=== PATIENT | female | born 1980 | race Caucasian/White ===

== ENCOUNTER 2017-11-08 22:06 | Emergency (ER) | payer OTHER, SELFPAY ==
[2017-11-08 22:07] VITALS: BP 139/86; PULSE 70; RESP 16; TEMP 36.6; O2SAT 98; BMI 24.9
--- NOTE | 2017-11-08 22:35 | RAD_ITS ---
STUDY: X-RAY - CERVICAL SPINE REASON FOR EXAM: Female, 37 years old. Neck pain TECHNIQUE: 4 view(s) of the cervical spine were obtained. COMPARISON: None FINDINGS: Normal anterior atlantoaxial articulation. Normal odontoid process. There is straightening of the cervical lordosis. Normal vertebral bodies and endplates. Normal disc space heights. The soft tissue structures are unremarkable. The head is slightly tilted to the right which may be due to muscle spasm. RAD/Cerv Spine 2 or 3 Views IMPRESSION: No acute bony pathology of the visualized cervical spine. Electronically Signed: Jose Breen DO at 22:53 EST Tel [phone], Service support ,
--- NOTE | 2017-11-08 22:40 | ED.VISSUMM ---
- ER Visit Summary Date of Service: 11/08/17 Chief Complaint: Neck injury History of Present Illness: The patient is a 37 F who fell while doing a yoga pose yesterday. Patient states she was standing in a headdown position when she lost her balance and fell. She states most of her weight went to the upper shoulder region area. Patient today is complaining of increasing pain and neck spasms. She denies pain radiation to her extremities. She has no paresthesias or weakness. She did take a dose of Tylenol earlier today. Physical Examination: Vital signs are unremarkable. Patient standing at bedside in no acute distress. Head and neck examination reveals no external sign of trauma. She does have reproducible tenderness in the midline C-spine. Minimal tenderness in the paraspinal muscles. Heart is regular rate and rhythm. Lung sounds are clear. Neuro exam is unremarkable. Test Results: C-spine x-rays read by myself revealed straightening of the normal curvature consistent with spasm but no acute fracture. No pull off fractures of the spinous processes are noted. Emergency Department Course and Treatment: Patient was treated with Naprosyn and Flexeril. She will be given prescriptions for the same at home. Treatment Plan: [] Disposition: Discharge Impression: Neck spasm status post fall This note was generated with 1-800-DENTIST dictation software. It may contain incorrect words, spelling, and punctuation that were not noted in review of the chart prior to signing ED Disposition - Plan for ED Patient: Chief Complaint: Other, Pain/Inj Referrals: Care Physician,No Primary [Primary Care Provider] -
[2017-11-08] MEDS: Naproxen 500 MG Tablet PO (22:50)
--- NOTE | 2017-11-08 22:56 | ED.DEP ---
ED Disposition - Plan for ED Patient: Disposition: Home or Assisted Living Chief Complaint: Other, Pain/Inj Instructions: ED Sprain Strain Neck Prescriptions: Naproxen [Naprosyn] 500 mg PO BID PRN #20 tablet Cyclobenzaprine [Flexeril] 10 mg PO TID PRN #20 tablet PRN Reason: Muscle Spasm Referrals: Fast,Alicia, DO [NON-STAFF] - As Needed
--- NOTE | 2017-11-08 23:09 | ED.RN ---
PT GIVEN WRITTEN AND VERBAL DISCHARGE INSTRUCTIONS AND HOME GOING PRESCRIPTIONS. PT VERBALIZES UNDERSTANDING. DX NECK STRAIN, TO FOLLOW UP WITH DR. HESS NEEDED.
== END 2017-11-08 23:10 | disposition home or self-care (01) ==
LOC: ED 23:08
PROVIDERS: Emergency Provider Emergency Medicine; Family Provider Family Medicine; PCP Family Medicine
DX: M62.838 Other muscle spasm (principal); Z91.81 History of falling
CPT/HCPCS: 72040; 99283; A4216

== ENCOUNTER → 2019-11-06 | Outpatient (CLI) | payer OTHER, SELFPAY ==
[2019-11-11 10:31] LABS: HPV APTIMA, High Risk Negative (Negative)
== END | disposition home or self-care (01) ==
LOC: LABSPEC 16:06
PROVIDERS: PCP Family Medicine; Visit Provider Obstetrics & Gynecology
DX: Z12.4 Encounter for screening for malignant neoplasm of cervix (principal)
CPT/HCPCS: 87624; 88175; G0145

== ENCOUNTER → 2022-05-19 | Outpatient (CLI) | payer BC, SELFPAY ==
--- NOTE | 2022-05-19 | LES_PTH ---
PATIENT: BAKARI CLOUD LOC: [facility] U#:[id number] AGE/SX: 41/F ROOM: RE05/19/[address]: Dr. Palmer Car DDS : 1980 BED: DIS: 05/19/2022 SPEC #: [id number] RECD: 05/19/22 13:16 STATUS: TIA REINA #: [id number] MICHELLE: 05/19/22 00:[address]: Palmer Car DEPT: SURGICAL PATHOLOGY RECD BY: Alvina Delgado ENTERED: 05/22/22 08:37 SP TYPE: Lesion OTHR DR: Dr. Malik Moralez MD Tissues: Buccal mucosa, NOS Procedures: Special Stain Group I Surgery Specimen Level IV GMS Stain (control) HEADER OPERATION: Excisional biopsy of right vestibular lesion PRE-OP DIAGNOSIS: Lesion with bleeding, slight ulceration, history of lichen planus TISSUE SUBMITTED: Right buccal/vestibular lesion MICROSCOPIC DIAGNOSIS Right buccal/vestibular lesion, excisional biopsy: Squamous mucosa with marked chronic inflammatory cell infiltrate with germinal center formation. See comment. BOBBY:abena 05/23/2022 COMMENT The findings are compatible with clinical history of lichen planus. Special stain for fungi is negative for organisms; matched control is appropriate. Immunohistochemistry ([id number]) supports the above diagnosis. Clinical correlation and appropriate follow up are necessary. MICROSCOPIC DESCRIPTION Slides are reviewed. GROSS DESCRIPTION Received in fixative is one container labeled with the patient's name and designated right vestibule. The specimen consists of a piece of russo mucosal tissue measuring 1.4 x 0.5 x 0.3 cm. The specimen is inked, bisected and submitted entirely in one cassette. / BOBBY:abena 05/22/2022 TC:5 CPT: 06462, 38997
--- NOTE | 2022-05-19 | IMM_PTH ---
PATIENT: BAKARI CLOUD LOC: [facility] U#:[id number] AGE/SX: 41/F ROOM: RE05/19/[address]: Dr. Palmer Car DDS : 1980 BED: DIS: 05/19/2022 SPEC #: [id number] RECD: 05/23/22 12:16 STATUS: TIA RECaitie #: [id number] MICHELLE: 05/19/22 00:[address]: Palmer Car DEPT: IMMUNOHISTOCHEMISTRY RECD BY: Chely Cochran ENTERED: 05/23/22 12:17 SP TYPE: IMMUNO OTHR DR: Dr. Malik Moralez MD Tissues: Buccal mucosa, NOS Procedures: CD20 (add) CD3 (add) CD45 (add) CD5 (add) CD79A (add) CK8 (add) KI-67 (add) Pankeratin (initial) PHYSICIAN & INSTITUTION [place] [id number] SPECIMEN INFORMATION: Tissue Source: Right buccal/vestibular lesion Clinical Info: Lesion, history of lichen planus Specimen Number: [id number] CPT code: 04711, 08222 x7 METHODOLOGY: Deparaffinized sections of prefer/formalin-fixed tissue or PAP/DQ stained slides are incubated with monoclonal/polyclonal antibodies/oligonucleotide probes. Localization is made via biotin free immunoperoxidase method. Appropriate controls are performed and reacted as expected. Results on target cell population are indicated in the following table: RESULTS: ANTIBODY / CLONE RESULT AE1-3 (AE1/AE3/PCK26) negative CK8 ([id number]) negative CD3 (PS1) positive CD5 (SP10) positive CD20 (L26) positive CD45 (RP2/18) positive CD79a (11E3) positive Ki-67 (30-9) positive, high in germinal center These tests were developed and their performance characteristics determined by [facility]. They may not have been cleared or approved by the [place]. Food and Drug Administration. The FDA has determined that such clearance or approval is not necessary. The above immunohistochemical/dualISH markers are ordered and reviewed by the Pathologist. INTERPRETATION: Right buccal/vestibular lesion, excisional biopsy: Lymphocytic infiltrates, polytypic in nature. BOBBY:abena 05/24/2022
== END | disposition home or self-care (01) ==
LOC: LABSPEC 13:18
PROVIDERS: PCP Family Medicine; Referring Provider Dentist Oral and Maxillofacial Surgery; Visit Provider Dentist Oral and Maxillofacial Surgery
DX: L43.8 Other lichen planus (principal)
CPT/HCPCS: 88305; 88312; 88341; 88342